=== PATIENT | male | born 1980 | race African-American/Black ===

== ENCOUNTER 2016-10-04 09:31 | Emergency (ER) ==
--- NOTE | 2016-10-04 09:52 | EKG Report ---
Test Performed on : 10/04/2016 09:44:02 AM Test Reason : CP Blood Pressure : / mmHG Vent. Rate : 075 BPM Atrial Rate : 075 BPM P-R Int : 164 ms QRS Dur : 096 ms QT Int : 388 ms P-R-T Axes : 049 031 018 degrees QTc Int : 433 ms Normal sinus rhythm. Nonspecific T wave abnormality Abnormal ECG No previous ECGs available Unconfirmed Result
--- NOTE | 2016-10-04 09:54 | ED EKG INTERP ---
EKG Interpretation - EKG Time of EKG reading by physician:: 09:44 EKG Read and Signed by:: Shankar St EKG Interpretation (*Must complete 3 of following elements*): Abnormal Rate: 75 Rhythm: normal sinus rhythm Comments: nonspecific T wave abnormality Attestation - Scribe Verification/Attestation Scribe:: Cat Tran Acting as Scribe for:: Shankar St Scribe documention review:: This chart was documented by a scribe and accurately reflects the service the provider performed and the decisions made by the provider.
--- NOTE | 2016-10-04 10:11 | PROVIDER DOCUMENTATION ---
HPI-Chest Pain - General Source: patient - History of Present Illness-CP Location: reports: other (L side) Chest Pain Radiation: reports: no radiation Quality of Pain: reports: aching Severity in ED: mild Onset/Duration: 2 days ago Timing: still present, intermittent Context/Activities at Onset: reports: moderate activity (lifting something) Modifying Factors: improves with: nothing Associated Symptoms: reports: shortness of breath (mild). denies: abdominal pain, back pain, diaphoresis, dizziness, edema, fatigue, fever/chills, headache , heartburn, nausea, rash, swelling/lump in chest, syncope, vomiting, weakness Nitro Today/Relief: no nitro taken today Aspirin Treatment Today: no aspirin today Prior Chest Pain/Cardiac Workup: reports: no prior chest pain, no prior cardiac workup Similar Symptoms Previously?: Yes Recently Seen Here or By Another Healthcare Provider: No <Cat Tran - Last Filed: 10/04/16 12:46> <Miley Sapp - Last Filed: 10/04/16 13:22> - General Chief Complaint: General Adult Stated Complaint: CHEST PAIN/FOOT PAIN Time Seen by Provider: 10/04/16 09:57 Allergies/Adverse Reactions: Patient Allergies Allergy/AdvReac Type Severity Reaction Status Date / Time No Known Allergies Allergy Verified 04/03/16 10:29 Home Medications: Home Medication List Medication Instructions Recorded Confirmed Last Taken Type Dicyclomine HCl [Bentyl] 20 mg PO Q6H PRN PRN #40 tablet 04/03/16 Unknown Rx Promethazine [Phenergan] 25 mg PO Q6H PRN PRN #14 tablet 04/03/16 Unknown Rx Azithromycin [Zithromax Z-Ciaran] 250 mg PO DIRECTED #1 pkg 10/04/16 Unknown Rx - History of Present Illness-CP Nature of Presenting Problem: Pt is 36 y/o M presents to the ED with L side chest pain. Pt states pain started two days ago after lifting something. Pt denies radiation of pain. Pt states taking ibuprofen with relief. Pt states the pain is intermittent. Pt states mild SOB. Pt denies N/V/D (Cat Tran) Review of Systems - Adult - REVIEW OF SYSTEMS - ADULT Constitutional: denies: chills, fever Eyes: denies: blurred vision, double vision Ears, Nose, Mouth & Throat: denies: ear pain, nose pain, throat pain Cardiovascular: reports: chest pain (L side). denies: heart murmur, irregular heart rate Respiratory: reports: cough. denies: shortness of breath, wheezing Gastrointestinal: denies: abdominal pain, diarrhea, nausea, vomiting Genitourinary: denies: dysuria, hematuria Musculoskeletal: denies: bone pain, joint pain, neck pain Integumentary: denies: hives, itching Neurological: denies: dizziness/vertigo, headache/migraines Psychiatric: reports: no symptoms reported Endocrine: reports: no symptoms reported Hematologic/Lymphatic: reports: no symptoms reported Allergic/Immunologic: reports: no symptoms reported All Other Systems: Reviewed and Negative <Cat Tran - Last Filed: 10/04/16 12:46> Past History - Adult - PAST MEDICAL HISTORY-ADULT Review of Records: reports: Nursing Assessment Review, Medications Reviewed, Social history reviewed & non-contributory. Major Childhood Illnesses: reports: denies history Cardiovascular: reports: denies history Respiratory: reports: denies history Gastrointestinal: reports: denies history Obstetrical/Gynecological: reports: denies history Genitourinary: reports: denies history Musculoskeletal: reports: denies history Neurological: reports: denies history Endocrine/Immune: reports: denies history Other Conditions: reports: denies history - PRIOR SURGERIES/PROCEDURES Surgical/Procedure History: reports: reviewed, not pertinent - IMMUNIZATION STATUS Childhood Immunizations: See Nurse Assessment Flu Vaccine: See Nurse Assessment - FAMILY HISTORY Family History: reviewed, not pertinent - SOCIAL HISTORY Smoking: cigarettes, less than 1 pack/day Provider spent 3-5 mins advising pt. on dangers of tobacco.: Discussed manners to quit use, and f/u contacts for add'l counseling. Substance Use: alcohol Alcohol Use Frequency: occasionally Number of drinks per typical drinking period:: 2 drinks Living Situation: family <Cat Tran - Last Filed: 10/04/16 12:46> Physical Exam-General - PHYSICAL EXAM-ADULT Initial Vital Signs Reviewed: Yes - CONSTITUTIONAL General Appearance: appears well, alert, no apparent distress - EYES Eyes: PERRL/EOMI, pink conjunctivae, fundi clear, no AV nicking - HEAD, EARS, NOSE, MOUTH & THROAT HENMT: normocephalic/atraumatic, moist mucous membranes, normal ENT inspection, TMs normal, pharynx normal - NECK Neck: non-tender, full range of motion, supple, normal inspection - RESPIRATORY Respiratory: chest non-tender, lungs clear, normal breath sounds, no pleuratic chest pain, no respiratory distress, no accessory muscle use - CARDIOVASCULAR Cardiovascular: normal peripheral pulses, regular rate, rhythm, no edema, no gallop, no JVD, no murmur - GASTROINTESTINAL (ABDOMEN) Abdominal Exam: normal bowel sounds, non tender, soft, no organomegaly, no pulsatile mass - LYMPHATIC Lymphatic: no adenopathy - MUSCULOSKELETAL Back Exam: normal inspection, no CVA tenderness, no vertebral tenderness Extremity: normal range of motion, non-tender, normal gait, normal inspection, no pedal edema, no calf tenderness, normal capillary refill, pelvis stable - SKIN Integumentary: normal color, normal turgor, warm/dry - NEUROLOGIC Neurologic: bridge builder II-XII nml as tested, grossly normal, no motor/sensory deficits - PSYCHIATRIC Psych/Mental Status: normal mood/affect, normal thought content, normal thought process, oriented x 3 <Cat Tran - Last Filed: 10/04/16 12:46> Progress - XRAY 1 XRAY: Bilateral XRAY Study: Chest Impression: Normal XRAY Interpretation: NAD - CONSULTS/PCP/HOSPITALIST Notification #1 *Consult/PCP/Hospitalist*: Elvia Schaefer office Time Discussed: 12:46 (Elvia moses Pt has appointment on October 11 at 0930 at [facility] ) Reason/Comments: Mary Jo Sapp consulted with Elvia at Dr. Schaefer's office Consult Disposition: F/U in office <Cat Tran - Last Filed: 10/04/16 12:46> - XRAY 1 XRAY Study: Chest Impression: Normal XRAY Interpretation: nad - CT/MRI 1 CT Study: Thorax Impression: Abnormal CT Results: Air Cyst Inflammatory Disease; DIP; Called per Dr. Mo - CONSULTS/PCP/HOSPITALIST Notification #1 *Consult/PCP/Hospitalist*: Dr. Nieves Time Discussed: 12:30 Reason/Comments: results of CT Chest Consult Disposition: F/U in office <Miley Sapp - Last Filed: 10/04/16 13:22> - PLAN OF CARE/RESULTS Progress/Plan/Lab Results: Orders Category Date Time Status Cardiac Monitoring DIRECTED Care 10/04/16 10:09 Active CHEST-2 VIEWS [RAD] Stat Exams 10/04/16 10:09 Ordered CBC WITH DIFF [HEME] Stat Lab 10/04/16 10:08 Ordered CMP [COMPREHENSIVE METABOLIC PANEL] [CHEM] Stat Lab 10/04/16 10:08 Ordered Cardiac Profile [CK PROFILE] [SP CHEM] Stat Lab 10/04/16 10:09 Ordered TROPONIN T Stat Lab 10/04/16 10:09 Ordered EKG [EKG] Stat Ther 10/04/16 09:41 Draft Vital Signs - 24 hr 10/04/16 09:36 Temperature 97.1 F L Pulse Rate 84 Respiratory 18 Rate Blood Pressure 154/77 O2 Sat by Pulse 99 Oximetry Laboratory Tests 10/04/16 10/04/16 10/04/16 10:18 10:18 10:18 WBC 9.12 RBC 4.75 Hgb 13.2 L Hct 39.9 L MCV 84.0 MCH 27.8 MCHC 33.1 RDW Std Deviation 13.9 Plt Count 286 MPV 9.5 Immature Gran % (Auto) 0.1 Neut % (Auto) 50.8 Lymph % (Auto) 35.9 [place] % (Auto) 9.1 Eos % (Auto) 3.6 Baso % (Auto) 0.5 Immature Gran # (Auto) 0.01 Neut # (Auto) 4.63 Lymph # (Auto) 3.27 [place] # (Auto) 0.83 H Eos # (Auto) 0.33 Baso # (Auto) 0.05 D-Dimer Sodium 137 Potassium 4.0 Chloride 102 Carbon Dioxide 26 Anion Gap 9 BUN 12 Creatinine 0.6 L Estimated GFR/1.73 m2 > 60 BUN/Creatinine Ratio 20 Glucose 100 Calculated Osmolality 274 Calcium 9.5 Total Bilirubin 0.20 AST 16 ALT 13 Alkaline Phosphatase 46 Creatine Kinase 378 H Creatine Kinase Index 1.0 CK-MB (CK-2) 3.63 Troponin T Total Protein 8.1 Albumin 4.4 Globulin 4.0 Albumin/Globulin Ratio 1.0 10/04/16 10/04/16 10:18 10:18 WBC RBC Hgb Hct MCV MCH MCHC RDW Std Deviation Plt Count MPV Immature Gran % (Auto) Neut % (Auto) Lymph % (Auto) [place] % (Auto) Eos % (Auto) Baso % (Auto) Immature Gran # (Auto) Neut # (Auto) Lymph # (Auto) [place] # (Auto) Eos # (Auto) Baso # (Auto) D-Dimer 0.86 H Sodium Potassium Chloride Carbon Dioxide Anion Gap BUN Creatinine Estimated GFR/1.73 m2 BUN/Creatinine Ratio Glucose Calculated Osmolality Calcium Total Bilirubin AST ALT Alkaline Phosphatase Creatine Kinase Creatine Kinase Index CK-MB (CK-2) Troponin T < 0.010 Total Protein Albumin Globulin Albumin/Globulin Ratio (Cat Tran) 1155: Recieved call from Dr. Mo concerning patient's Ct Chest, Results: Air cyst inflammatory disease, DIP, recommended follow-up, with Backfiller (Miley Sapp) Departure <Cat Tran - Last Filed: 10/04/16 12:46> - Departure Certified Medical Emergency: Emergent <Miley Sapp - Last Filed: 10/04/16 13:22> - Departure DIAGNOSIS: Shortness of breath, Cough Chest pain Qualifiers: Chest pain type: unspecified Qualified Code(s): R07.9 - Chest pain, unspecified Disposition: HOME 01 Condition: Stable Additional Instructions: ED Follow Up Instructions: You have been treated by a care provider in the Emergency Department. These instructions are being provided to you so you can have an understanding of how to care for yourself upon discharge. Upon discharge from the Emergency Department, you are responsible for making arrangements for follow-up care by a physician of your choice. Take all prescribed medications as directed. Return to the Emergency Department immediately for any new or worsening symptoms. You may call the Physician Referral phone number at [phone] to obtain a list of Physicians who are taking new patients. Prescriptions: Azithromycin [Zithromax Z-Ciaran] 250 mg PO DIRECTED #1 pkg Referrals: Alexandro Lopez MD [STAFF PHYSICIAN] - None,PCP [Primary Care Provider] - Forms: Return to School/Parent Work Instructions: Cough, Adult, [id number], Azithromycin tablets, Nonspecific Chest Pain, [id number] Attestation - Scribe Verification/Attestation Scribe:: Cat Tran Acting as Scribe for:: Miley Sapp Scribe documention review:: This chart was documented by a scribe and accurately reflects the service the provider performed and the decisions made by the provider. <Cat Tran - Last Filed: 10/04/16 12:46> - Physician/ YOKASTA Attestation Patient care was provided by Advanced Practice Provider:: Yes Advanced Practice Provider:: Miley Sapp Advanced Practice Provider documentation review:: The Mid-level provider documentation, treatment plan and medical decision making was reviewed by the physician who agrees with all treatment and medical decision making by the MLP. <Miley Sapp - Last Filed: 10/04/16 13:22> Physician Attestation
[2016-10-04 10:25] LABS: MANUAL DIFF NEEDED? NO
[2016-10-04 10:32] LABS: BASO% 0.5 % (0.0-0.8); EOS# 0.33 X1000 (0.0-0.7); EOS% 3.6 % (0.0-10.0); HEMATOCRIT 39.9 % (42.0-52.0); HEMOGLOBIN 13.2 g/dL (14.0-18.0); IMM GRAN# 0.01 X1000 (0.0-0.04); IMM GRAN% 0.1 % (0.0-0.5); LYMPH# 3.27 X1000 (1.2-3.4); LYMPH% 35.9 % (20.5-51.1); MCH 27.8 PG (27-31); MCHC 33.1 g/dL (33-37); MONO# 0.83 X1000 (0.11-0.59); MONO% 9.1 % (1.7-9.3); MPV 9.5 FL (7.4-10.4); NEUT% 50.8 % (42.2-75.2); PLT 286 X1000 (130-400); RBC 4.75 XMIL (4.7-6.1)
[2016-10-04 10:53] LABS: AGAP 9; ALBUMIN 4.4 g/dL (3.5-5.0); ALKALINE PHOSPHATASE 46 U/L (32-122); BUN 12 mg/dL (8-22); CALCIUM 9.5 mg/dL (8.8-10.2); CHLORIDE 102 mmol/L (98-107); COSMO 274; GOT 16 U/L (10-34); GPT 13 U/L (10-44); SODIUM 137 mmol/L (136-145); TCO2 26 mmol/L (25-35); TOTAL PROTEIN 8.1 g/dL (6.3-8.3)
--- NOTE | 2016-10-04 10:57 | Diag Imaging Result Document ---
PROCEDURE NAME: CHEST-2 VIEWS - 10/04/2016 TWO VIEWS OF THE CHEST: FINDINGS: There is no evidence of focal pulmonary opacity and no cardiomegaly is present. There are no previous studies. IMPRESSION: No evidence of acute disease.
[2016-10-04 11:17] LABS: CK-MB 3.63 ng/mL (0.0-5.0)
[2016-10-04] MEDS ORDERED: DECADRON IM ONE (11:33)
[2016-10-04] MEDS ORDERED: ROCEPHIN 1 GM/NS 50 ML IV ONE (12:08)
[2016-10-04] MEDS ORDERED: LEVAQUIN PO ONE (12:08)
--- NOTE | 2016-10-04 12:13 | Diag Imaging Result Document ---
PROCEDURE NAME: ANGIOGRAM/PULMONARY ARTERIES - 10/04/2016 CT PULMONARY ANGIOGRAM WITH INTRAVENOUS CONTRAST: COMPARISON: Chest x-ray earlier 10/04/2016. FINDINGS: Axial CT images of the chest were obtained after administering intravenous contrast. Coronal MIP images were generated. There is some mild adenopathy in the mediastinum, most notably the right paratracheal region, both tracheobronchial angles and the anterior mediastinum. There are some borderline bilateral hilar nodes. No pulmonary embolism. Heart and great vessels are normal. There are numerous small scattered air cysts throughout the lungs with upper lobe predominance, measuring up to about 1 cm. No infiltrates. Bony structures are intact. IMPRESSION: Negative for pulmonary embolism. Mild mediastinal adenopathy. Scattered air cysts throughout the lungs. There is also some mild ground-glass attenuation throughout the lungs particularly in the upper lobes. The differential diagnosis includes lymphoid interstitial pneumonia, desquamative interstitial pneumonia, Langerhans cell histiocytosis, and [id number] syndrome.
[2016-10-04 12:51] LABS: BLOOD TYPE ARTERIAL; DRAW SITE R RADIAL; METHB 1.1 % (0.0-1.5); O2(CT) 15.9 mL/dL (15.0-23.0); PCO2(98.6) 48 mmHg (35-45); PO2(98.6) 59 mmHg (60-100); SAMPLE BLOOD; SAO2 93.4 % (95.0-100.0); THB 13.6 g/dL (11.5-17.4)
[2016-10-04 12:54] LABS: MODALITY ROOM AIR
[2016-10-04 12:55] LABS: ALLEN TEST YES
[2016-10-04 14:38] VITALS: BP 131/96
== END 2016-10-04 13:34 | disposition home or self-care (01) ==
LOC: P.ED 09:31
DX: R07.9 Chest pain, unspecified (principal); R06.02 Shortness of breath; R05 Cough; X50.9XXA Other and unspecified overexertion or strenuous movements or postures, initial encounter; F17.210 Nicotine dependence, cigarettes, uncomplicated; Z71.6 Tobacco abuse counseling
CPT/HCPCS: 36415; 71020; 71275; 80053; 82550; 82553; 82805; 84484; 85025; 85379; 93005; 96365; 96372; J0696; Q9967

== ENCOUNTER 2016-10-24 11:40 | Emergency (ER) ==
[2016-10-24 12:10] VITALS: BP 133/076
--- NOTE | 2016-10-24 12:52 | PROVIDER DOCUMENTATION ---
HPI-General Adult - General Source: patient - History of Present Illness -Gen Adult Nature of Presenting Problems: pt is a 36 y/o M that presents to the ER with bodyaches, cough/congestion, and runny nose x 2 days. denies n/v/d or sore throat Location of Pain/Injury: reports: generalized Quality of Pain: reports: aching Severity: reports: mild Onset/Duration: reports: gradual, 3 days ago Timing: reports: still present, constant Context/Activities at Onset: reports: none Modifying Factors: improves with: nothing Associated Symptoms: reports: cough, EENT symptoms, muscle aches, sinus congestion/drainage. denies: fever/chills, nausea, vomiting Similar Symptoms Previously?: No Recently seen or treated by another doctor?: No <Clinton Subramanian - Last Filed: 10/24/16 12:50> <Dave Vaz - Last Filed: 10/24/16 12:55> - General Chief Complaint: Flu Symptoms Stated Complaint: FLU LIKE SX Time Seen by Provider: 10/24/16 12:23 Allergies/Adverse Reactions: Patient Allergies Allergy/AdvReac Type Severity Reaction Status Date / Time No Known Allergies Allergy Verified 10/24/16 12:10 Home Medications: Home Medication List Medication Instructions Recorded Confirmed Last Taken Type Amoxicillin [Amoxil] 500 mg PO BID #10 capsule 10/24/16 Unknown Rx Guaifenesin/D-Methorphan Hb/PE 1 each PO Q6-8H PRN PRN #14 tablet 10/24/16 Unknown Rx [Deconex Dmx Tablet] Prednisone 20 mg PO DAILY #6 tablet 10/24/16 Unknown Rx Review of Systems - Adult - REVIEW OF SYSTEMS - ADULT Constitutional: denies: chills, fever Eyes: denies: blurred vision, double vision Ears, Nose, Mouth & Throat: reports: ear pain, sinus problem. denies: throat pain, throat swelling Cardiovascular: denies: chest pain, palpitations Respiratory: reports: cough. denies: shortness of breath, wheezing Gastrointestinal: denies: abdominal pain, diarrhea, nausea, vomiting Genitourinary: reports: no symptoms reported Musculoskeletal: reports: no symptoms reported Integumentary: reports: no symptoms reported Neurological: reports: headache/migraines. denies: dizziness/vertigo, numbness , syncope Psychiatric: reports: no symptoms reported Endocrine: reports: no symptoms reported Hematologic/Lymphatic: reports: no symptoms reported Allergic/Immunologic: reports: no symptoms reported All Other Systems: Reviewed and Negative <Clinton Subramanian - Last Filed: 10/24/16 12:50> Past History - Adult - PAST MEDICAL HISTORY-ADULT Review of Records: reports: Old Records Reviewed, Nursing Assessment Review, Medications Reviewed Major Childhood Illnesses: reports: denies history Cardiovascular: reports: denies history Respiratory: reports: denies history Gastrointestinal: reports: denies history Obstetrical/Gynecological: reports: denies history Genitourinary: reports: denies history Musculoskeletal: reports: denies history Neurological: reports: denies history Endocrine/Immune: reports: denies history Other Conditions: reports: denies history - PRIOR SURGERIES/PROCEDURES Surgical/Procedure History: reports: reviewed, not pertinent - IMMUNIZATION STATUS Childhood Immunizations: See Nurse Assessment Flu Vaccine: See Nurse Assessment - FAMILY HISTORY Family History: reviewed, not pertinent - SOCIAL HISTORY Alcohol Use Frequency: occasionally Living Situation: family <Clinton Subramanian - Last Filed: 10/24/16 12:50> Physical Exam-General - PHYSICAL EXAM-ADULT Initial Vital Signs Reviewed: Yes - CONSTITUTIONAL General Appearance: alert, no apparent distress - EYES Eyes: PERRL/EOMI, pink conjunctivae - HEAD, EARS, NOSE, MOUTH & THROAT HENMT: normocephalic/atraumatic, moist mucous membranes, TM abnormal (left erythema TM), other (nasal turbens inflammed) - NECK Neck: full range of motion, normal inspection. negative: lymphadenopathy - RESPIRATORY Respiratory: lungs clear, normal breath sounds, no respiratory distress, no accessory muscle use - CARDIOVASCULAR Cardiovascular: regular rate, rhythm, no edema - GASTROINTESTINAL (ABDOMEN) Abdominal Exam: normal bowel sounds, non tender, soft - MUSCULOSKELETAL Extremity: normal range of motion, normal inspection, no pedal edema - SKIN Integumentary: normal color, warm/dry - NEUROLOGIC Neurologic: grossly normal, no motor/sensory deficits - PSYCHIATRIC Psych/Mental Status: normal mood/affect, oriented x 3 <Clinton Subramanian - Last Filed: 10/24/16 12:50> Departure <Clinton Subramanian - Last Filed: 10/24/16 12:50> - Departure Time of Disposition Order: 12:54 Certified Medical Emergency: Urgent <Dave Vaz - Last Filed: 10/24/16 12:55> - Departure DIAGNOSIS: Otitis media Qualifiers: Otitis media type: in diseases classified elsewhere Laterality: right Qualified Code(s): H67.1 - Otitis media in diseases classified elsewhere, right ear Sinusitis Qualifiers: Sinusitis location: pansinusitis Chronicity: acute Recurrence: non-recurrent Qualified Code(s): J01.40 - Acute pansinusitis, unspecified Disposition: HOME 01 Condition: Good Additional Instructions: Take medication as prescribed. Rest and stay well hydrated. Follow up with your primary care provider. ED Follow Up Instructions: You have been treated by a care provider in the Emergency Department. These instructions are being provided to you so you can have an understanding of how to care for yourself upon discharge. Upon discharge from the Emergency Department, you are responsible for making arrangements for follow-up care by a physician of your choice. Take all prescribed medications as directed. Return to the Emergency Department immediately for any new or worsening symptoms. You may call the Physician Referral phone number at [phone] to obtain a list of Physicians who are taking new patients. Prescriptions: Amoxicillin [Amoxil] 500 mg PO BID #10 capsule Guaifenesin/D-Methorphan Hb/PE [Deconex Dmx Tablet] 1 each PO Q6-8H PRN PRN #14 tablet PRN Reason: Cough and congestion Prednisone 20 mg PO DAILY #6 tablet Attestation - Scribe Verification/Attestation Scribe:: Clinton Subramanian Acting as Scribe for:: Dave Vaz Scribe documention review:: This chart was documented by a scribe and accurately reflects the service the provider performed and the decisions made by the provider. - Physician/ YOKASTA Attestation Patient care was provided by Advanced Practice Provider:: Yes Advanced Practice Provider:: Dave Vaz Advanced Practice Provider documentation review:: The Mid-level provider documentation, treatment plan and medical decision making was reviewed by the physician who agrees with all treatment and medical decision making by the MLP. <Clinton Subramanian - Last Filed: 10/24/16 12:50> - Physician/ YOKASTA Attestation Patient care was provided by Advanced Practice Provider:: Yes Advanced Practice Provider:: Dave Vaz Advanced Practice Provider documentation review:: The Mid-level provider documentation, treatment plan and medical decision making was reviewed by the physician who agrees with all treatment and medical decision making by the MLP. <Dave Vaz - Last Filed: 10/24/16 12:55> Physician Attestation - Physician Attestation I, the provider, attest to the following statement:: Dave Vaz Physician documentation Attestation:: This documentation recorded by the scribe accurately reflects the service I personally performed and the decisions made by me. <Clinton Subramanian - Last Filed: 10/24/16 12:50>
== END 2016-10-24 13:09 | disposition home or self-care (01) ==
LOC: P.ED 11:40
DX: H67.1 Otitis media in diseases classified elsewhere, right ear (principal); J01.40 Acute pansinusitis, unspecified; H92.01 Otalgia, right ear; R05 Cough; R51 Headache
CPT/HCPCS: 87804; 99283